=== PATIENT | female | born 1980 | race Hispanic/Latino ===

== ENCOUNTER 2016-08-11 11:42 | Emergency (ER) | payer BC ==
[2016-08-11] MEDS ORDERED: Sodium Chloride 0.9% 1,000 ML IV ONE (12:05)
[2016-08-11] MEDS ORDERED: DiphenhydrAMINE 50 mg/ml Inj IVP ONE (12:05)
[2016-08-12 10:29] LABS: URINE APPEARANCE CLEAR (CLEAR); URINE BILIRUBIN NEGATIVE (NEGATIVE); URINE BLOOD NEGATIVE (NEGATIVE); URINE COLOR YELLOW (YELLOW); URINE GLUCOSE (UA) NEGATIVE (NEGATIVE); URINE KETONE TRACE mg/dL (NEGATIVE)
[2016-08-12 10:30] LABS: URINE AMORPHOUS SEDIMENT MODERATE; URINE BACTERIA MOD (NEG); URINE LEUKOCYTE ESTERASE NEGATIVE Leu/uL (NEGATIVE); URINE PROTEIN 30 mg/dL (<30 mg/dL); URINE RBC NEGATIVE /hpf (0-2); URINE UROBILINOGEN 0.2 E.U./dL (<1 E.U./dL)
[2016-08-23 07:36] VITALS: BMI 28.5
== END 2016-08-12 08:32 | disposition home or self-care (01) ==
LOC: ED 11:42
DX: R51 Headache (principal)

== ENCOUNTER 2016-08-15 17:03 | Emergency (ER) | payer BC ==
[2016-08-15 17:13] VITALS: BMI 27.4
[2016-08-15 17:18] VITALS: TEMP 98.7
[2016-08-15] MEDS ORDERED: DiphenhydrAMINE 50 mg/ml Inj IVP STA (17:53)
--- NOTE | 2016-08-15 17:57 | ED PDOC ---
Arrival/HPI - General Chief Complaint: GI Problem Time Seen by Provider: 08/15/16 17:23 Historian: Patient - History of Present Illness Narrative History of Present Illness (Text): 08/15/16 17:50 A 36 year old female presents to the emergency department complaining of a worsening headache for the past 4 days. Patient notes associated dizziness and sensitivity to light and sound. She states her symptoms are exacerbated with movement. Patient reports she was seen in the emergency room for the same complaints and prescribed Fioricet and Zofran. Patient states she has been complaint with the medication, with no complete relief. Patient notes nausea, non-bilious non-bloody vomiting and mild abdominal discomfort but denies any fever, diarrhea, chest pain, shortness of breath or any other complaints. The epigastric abdominal discomfort started after her vomiting. Patient has had headaches like this before. This is not the worst headache of her life. PMD: None Time/Duration: Other (4 days) Symptom Course: Unchanged Quality: Other Context: Home Past Medical History - Provider Review Nursing Documentation Reviewed: Yes - Past History Past History: No Previous - Infectious Disease Hx of Infectious Diseases: None - Hematological/Oncological Hx Blood Disorders: Yes Hx Anemia: Yes - Psychiatric Hx Depression: No Hx Emotional Abuse: No Hx Physical Abuse: No Hx Substance Use: No - Past Surgical History Past Surgical History: No Previous - Anesthesia Hx Anesthesia: No - Suicidal Assessment Feels Threatened In Home Enviroment: No Family/Social History - Physician Review Nursing Documentation Reviewed: Yes Family/Social History: No Known Family HX Smoking Status: Never Smoked Hx Alcohol Use: No Hx Substance Use: No Hx Substance Use Treatment: No Allergies/Home Meds Allergies/Adverse Reactions: Allergies narcotic Allergy (Uncoded 08/15/16 17:13) VOMITING Home Medications: Home Meds Medication Instructions Recorded Confirmed Acetaminophen/Butalbital/Caf 1 tab PO PRN PRN 08/15/16 08/15/16 [Fioricet] Cephalexin [cephalexin] 500 mg PO BID 08/15/16 08/15/16 Ondansetron [Zofran] 4 mg PO PRN PRN 08/15/16 08/15/16 Review of Systems - Physician Review All systems were reviewed & negative as marked: Yes - Review of Systems Constitutional: absent: Fevers, Night Sweats Eyes: Photophobia. absent: Vision Changes, Eye Pain ENT: Other (hyperacusis). absent: Tinnitus Respiratory: absent: SOB Cardiovascular: absent: Chest Pain Gastrointestinal: Abdominal Pain, Nausea, Vomiting. absent: Diarrhea Musculoskeletal: absent: Back Pain, Neck Pain Neurological: Headache, Dizziness Physical Exam Vital Signs Reviewed: Yes Vital Signs Temp Pulse Resp BP Pulse Ox 08/15/16 20:02 67 18 105/69 100 08/15/16 18:55 69 18 101/71 100 08/15/16 17:17 98.7 F 75 16 99/70 L 100 Temperature: Afebrile Blood Pressure: Hypotensive Pulse: Regular Respiratory Rate: Normal Appearance: Positive for: Well-Appearing, Non-Toxic, Uncomfortable Pain Distress: None Mental Status: Positive for: Alert and Oriented X 3 - Systems Exam Head: Present: Atraumatic, Tenderness (to bilateral temporal and occipital lobes ), Other (Photophobia) Pupils: Present: PERRL Extroacular Muscles: Present: EOMI Conjunctiva: Present: Normal Ears: Present: Normal, NORMAL TM, Normal Canal. No: Erythema Mouth: Present: Moist Mucous Membranes Pharnyx: Present: Normal. No: ERYTHEMA, EXUDATE Nose (External): Present: Atraumatic Nose (Internal): Present: Normal Inspection Neck: Present: Normal Range of Motion Respiratory/Chest: Present: Clear to Auscultation, Good Air Exchange. No: Respiratory Distress, Accessory Muscle Use Cardiovascular: Present: Regular Rate and Rhythm, Normal S1, S2. No: Murmurs Abdomen: Present: Normal Bowel Sounds. No: Tenderness, Distention, Peritoneal Signs Back: Present: Normal Inspection Upper Extremity: Present: Normal Inspection. No: Cyanosis, Edema Lower Extremity: Present: Normal Inspection. No: Edema Neurological: Present: GCS=15, CN II-XII Intact, Speech Normal, Motor Func Grossly Intact, Normal Sensory Function, Normal Cerebellar Funct, Norm Deep Tendon Reflexes, Gait Normal, Normal 2Pt Descrimination Skin: Present: Warm, Dry, Normal Color. No: Rashes Psychiatric: Present: Alert, Oriented x 3, Normal Insight, Normal Concentration Medical Decision Making ED Course and Treatment: 08/15/16 17:50 Impression: A 36 year old female with a headache, dizziness and light/sound sensitivity. Patient notes nausea, vomiting and abdominal discomfort. Differential Diagnosis included but are not limited to: Migraine vs. Tension headache vs. less likely Subarachnoid hemorrhage Plan: -- Head CT -- Labs -- Tylenol, Benadryl, Reglan and IV fluids -- Reassess and disposition Prior Visits: Notes and results from previous visits were reviewed. Patient seen for previously for headaches with similar presentation as today. Progress Notes: 08/15/16 19:17 Patient refused PO medication. Toradol IV ordered. Report Date: 08/15/16 19:20 EXAM: CT Head Without Intravenous Contrast Dictated and Authenticated by: Abdullahi Sales MD Impression: No evidence of acute intracranial pathology. 08/15/16 22:15 Patient's headache resolved after medications. She just feels tired from the benadryl. She is able to walk without ataxia. Neuro exam; normal. No NFD, CN2- 12 intact, 5/5 MS, Sensation intact. Sister came to pick patient up. She's wondering if the headache are due to psych issues. Patient denies SI or HI. No delusions or hallucinations. I explained to patient and sister that most importantly she needs to f/u with her pmd and also a neurology. She can see Dr. Cole and I have given her a referral. - Lab Interpretations Lab Results: 08/15/16 18:40 08/15/16 18:40 Lab Results 08/15/16 18:40: Sodium 138, Potassium 3.8, Chloride 103, Carbon Dioxide 26, Anion Gap 13, BUN 18, Creatinine 0.7, Est GFR ( Amer) > 60, Est GFR (Non- Af Amer) > 60, Random Glucose 97, Calcium 9.3, Magnesium 2.0, Total Bilirubin 0.5, AST 27, ALT 46, Alkaline Phosphatase 65, Total Protein 7.6, Albumin 4.3, Globulin 3.3, Albumin/Globulin Ratio 1.3, Lipase 36 08/15/16 18:40: PT 11.6, INR 1.07, APTT 27.9 08/15/16 18:40: WBC 5.6, RBC 4.59, Hgb 13.6, Hct 38.5, MCV 83.9, MCH 29.6, MCHC 35.3, RDW 12.2, Plt Count 227, MPV 9.9, Gran % 46.0 L, Lymph % (Auto) 48.1 H, [place] % (Auto) 4.8, Eos % (Auto) 0.9 L, Baso % (Auto) 0.2, Gran # 2.56, Lymph # 2.7, [place] # 0.3, Eos # 0.1, Baso # 0.01, ESR 12 - RAD Interpretation Radiology Orders: 08/15/16 17:51 HEAD W/O CONTRAST [CT] Stat - Medication Orders Current Medication Orders: Sodium Chloride (Sodium Chloride 0.9%) 1,000 mls @ 100 mls/hr IV .Q10H DUYEN Last Admin: 08/15/16 18:44 Dose: 100 mls/hr Discontinued Medications Acetaminophen (Tylenol 325mg Tab) 975 mg PO STAT STA Stop: 08/15/16 17:52 Last Admin: 08/15/16 18:49 Dose: Not Given Non-Admin Reason: Patient Refused Diphenhydramine HCl (Benadryl) 50 mg IVP STAT STA Stop: 08/15/16 17:54 Last Admin: 08/15/16 18:44 Dose: 50 mg Metoclopramide HCl 10 mg/ (Sodium Chloride) 52 mls @ 200 mls/hr IV STAT STA Stop: 08/15/16 18:06 Last Admin: 08/15/16 18:44 Dose: 200 mls/hr Ketorolac Tromethamine (Toradol) 30 mg IVP STAT STA Stop: 08/15/16 19:55 Last Admin: 08/15/16 20:16 Dose: 30 mg Re-Assess: MARY Pain Assessment Document 08/15/16 21:16 HI (Rec: 08/15/16 21:39 PR [id number]) Pain Reassessment Is this a pain reassessment? Yes Sleep Is patient sleeping during reassessment? Yes Metoclopramide HCl (Reglan) Confirm Administered Dose 10 mg .ROUTE .STK-MED ONE Stop: 08/15/16 18:08 Last Admin: 08/15/16 18:45 Dose: - Scribe Statement The provider has reviewed the documentation as recorded by the Elveribfilipe Baker Provider Scribe Attestation: All medical record entries made by the Scribe were at my direction and personally dictated by me. I have reviewed the chart and agree that the record accurately reflects my personal performance of the history, physical exam, medical decision making, and the department course for this patient. I have also personally directed, reviewed, and agree with the discharge instructions and disposition. Disposition/Present on Arrival - Present on Arrival Any Indicators Present on Arrival: No History of DVT/PE: No History of Uncontrolled Diabetes: No Urinary Catheter: No History of Decub. Ulcer: No History Surgical Site Infection Following: None - Disposition Have Diagnosis and Disposition been Completed?: Yes Diagnosis: Headache Disposition: HOME/ ROUTINE Disposition Time: 22:17 Patient Plan: Discharge Patient Problems: Current Active Problems Problem Status Onset Headache Acute Condition: IMPROVED Discharge Instructions (ExitCare): Migraine Headache (ED), Tension Headache (ED ) Additional Instructions: Mr Sneed, thank you for letting us take care of you today. Your provider was Dr. Patel. You were treated for Headache. The emergency medical care you received today was directed at your acute symptoms. If you were prescribed any medication, please fill it and take as directed. It may take several days for your symptoms to resolve. Return to the Emergency Department if your symptoms worsen, do not improve, or if you have any other problems. Please contact your doctor or call one of the physicians/clinics you have been referred to that are listed on the Patient Visit Information form that is included in your discharge packet. Bring any paperwork you were given at discharge with you along with any medications you are taking to your follow up visit. Our treatment cannot replace ongoing medical care by a primary care provider (PCP) outside of the emergency department. Thank you for allowing the [facility] team to be part of your care today. If you had an X-Ray or CT scan: A Radiologist will review the ED reading if any change in treatment is needed we will contact you. If you had a blood, urine, or wound culture: It will take several days for the results, if any change in treatment is needed we will contact you. If you had an STI test: It will take 48 hours for the results. Please call after 1 week if you have not heard back. Referrals: Giovani Cole MD [Staff Provider] - Follow up with primary [employer] [facility], [Non-Staff] - Follow up with primary Forms: [employer] ([employer]), WORK NOTE
[2016-08-15] MEDS ORDERED: Sodium Chloride 0.9% 1,000 ML IV SCH (18:00)
[2016-08-15 18:54] LABS: ADD MANUAL DIFF? NO
[2016-08-15 19:09] LABS: ALB/GLOB RATIO 1.3 (1.1-1.8); ALKALINE PHOSPHATASE 65 U/L (38-133); ALT/SGPT 46 U/L (7-56); AST/SGOT 27 U/L (15-39); BILIRUBIN,TOTAL 0.5 mg/dL (0.2-1.3); BLOOD UREA NITROGEN 18 mg/dL (7-21); CALCIUM 9.3 mg/dL (8.4-10.5); CARBON DIOXIDE 26 mmol/L (21-33); CHLORIDE 103 mmol/L (98-107); GFR AFRICAN-AMERICAN > 60; GLUCOSE,RANDOM 97 mg/dL (70-110); LIPASE 36 U/L (23-300); POTASSIUM 3.8 mmol/L (3.6-5.0); SODIUM 138 mmol/L (132-148); TOTAL PROTEIN 7.6 g/dL (5.8-8.3)
[2016-08-15 19:16] LABS: INR 1.07 (0.93-1.08); PARTIAL THROMBOPLASTIN TIME 27.9 Seconds (23.7-30.8)
[2016-08-15 19:44] LABS: BASO # 0.01 K/mm3 (0.0-2.0); BASO % 0.2 % (0.0-3.0); EOS # 0.1 (0.0-0.7); EOS % 0.9 % (1.5-5.0); GRAN # 2.56 (1.4-6.5); HEMATOCRIT 38.5 % (36.0-48.0); LYMPH # 2.7 (1.2-3.4); LYMPH % 48.1 % (22.0-35.0); MEAN CELL VOLUME 83.9 fL (80.0-105.0); MEAN CORPUSCULAR HEMOGLOBIN 29.6 pg (25.0-35.0); MEAN CORPUSCULAR HGB CONC 35.3 g/dl (31.0-37.0); MEAN PLATELET VOLUME 9.9 fl (7.0-11.0); MONO # 0.3 (0.1-0.6); MONO % 4.8 % (1.0-6.0); PLATELET COUNT 227 10^3/uL (120.0-450.0); RED CELL DISTRIBUTION WIDTH 12.2 % (11.5-14.5); WHITE BLOOD COUNT 5.6 10^3/ul (4.5-11.0)
[2016-08-15 21:04] LABS: ERYTHROCYTE SEDIMENTATION RATE 12 mm/hr (0.0-20.0)
[2016-08-15 22:47] VITALS: BP 104/60; PULSE 58; RESP 16; O2SAT 98
--- NOTE | 2016-08-16 07:22 | CT ---
PROCEDURE: CT HEAD WITHOUT CONTRAST. HISTORY: headache COMPARISON: None available. TECHNIQUE: Axial computed tomography images were obtained through the head/brain without intravenous contrast. Radiation dose: Total exam DLP = 725.84 mGy-cm. This CT exam was performed using one or more of the following dose reduction techniques: Automated exposure control, adjustment of the mA and/or kV according to patient size, and/or use of iterative reconstruction technique. FINDINGS: HEMORRHAGE: No intracranial hemorrhage. BRAIN: No mass effect or edema. No atrophy or chronic microvascular ischemic changes. VENTRICLES: Unremarkable. No hydrocephalus. CALVARIUM: Unremarkable. PARANASAL SINUSES: Unremarkable as visualized. No significant inflammatory changes. MASTOID AIR CELLS: Unremarkable as visualized. No inflammatory changes. OTHER FINDINGS: None. IMPRESSION: No intracranial mass, hemorrhage or evidence of acute infarct. Unremarkable examination. Preliminary interpretation of this examination was reported by [facility] at 7:20 p.m. on 08/15/2016. There is concurrence of this report with the preliminary interpretation.
== END 2016-08-15 22:15 | disposition home or self-care (01) ==
LOC: ED 17:03
DX: R51 Headache (principal)
CPT/HCPCS: 70450; 80053; 83690; 83735; 85025; 85610; 85651; 85730; 96374; 96375; 99285; J1200; J1885; J2765; J7040

== ENCOUNTER 2017-02-20 12:05 | Emergency (ER) | payer BC ==
[2017-02-20 12:06] VITALS: BMI 27.4
[2017-02-20 12:19] VITALS: TEMP 98.1; O2SAT 99
--- NOTE | 2017-02-20 13:59 | RAD ---
PROCEDURE: Radiographs of the Lumbar Spine. HISTORY: back pain COMPARISON: No prior. FINDINGS: BONES: Normal alignment. No listhesis. No fracture. DISC SPACES: Unremarkable. OTHER FINDINGS: None. IMPRESSION: Unremarkable radiographs of the lumbar spine.
--- NOTE | 2017-02-20 14:00 | RAD ---
PROCEDURE: Left Hip X-ray Radiographs. HISTORY: hip pain COMPARISON: None. FINDINGS: BONES: There is normal bone mineralization. The pelvic ring is intact. There is no acute fracture or bone destruction. JOINTS: Normal. SOFT TISSUES: There is a benign soft tissue calcification lateral to the right iliac vein. OTHER FINDINGS: None. IMPRESSION: No acute fracture, bone destruction or degenerative osteoarthrosis.
[2017-02-20 14:26] LABS: BASO # 0.02 K/mm3 (0.0-2.0); BASO % 0.4 % (0.0-3.0); EOS % 0.4 % (1.5-5.0); GRAN # 2.22 (1.4-6.5); GRAN % 39.5 % (50.0-68.0); HEMATOCRIT 38.9 % (36.0-48.0); LYMPH % 54.2 % (22.0-35.0); MEAN CELL VOLUME 85.9 fl (80.0-105.0); MEAN CORPUSCULAR HEMOGLOBIN 29.6 pg (25.0-35.0); MEAN CORPUSCULAR HGB CONC 34.4 g/dl (31.0-37.0); MEAN PLATELET VOLUME 9.4 fl (7.0-11.0); MONO # 0.3 (0.1-0.6); MONO % 5.5 % (1.0-6.0); RED CELL DISTRIBUTION WIDTH 12.3 % (11.5-14.5); URINE BILIRUBIN NEGATIVE (NEGATIVE); URINE BLOOD NEGATIVE (NEGATIVE); URINE GLUCOSE (UA) NEGATIVE (NEGATIVE); URINE KETONE NEGATIVE (NEGATIVE); URINE LEUKOCYTE ESTERASE NEGATIVE Leu/uL (NEGATIVE); URINE PROTEIN NEGATIVE mg/dL (<30 mg/dL); URINE UROBILINOGEN 0.2 E.U./dL (<1 E.U./dL); WHITE BLOOD COUNT 5.6 10^3/ul (4.5-11.0)
[2017-02-20 14:27] LABS: URINE APPEARANCE CLEAR (CLEAR); URINE COLOR YELLOW (YELLOW)
[2017-02-20 14:30] LABS: ALB/GLOB RATIO 1.3 (1.1-1.8); ALKALINE PHOSPHATASE 75 U/L (38-126); ALT/SGPT 39 U/L (7-56); AST/SGOT 24 U/L (14-36); BILIRUBIN,TOTAL 0.7 mg/dL (0.2-1.3); BLOOD UREA NITROGEN 11 mg/dL (7-21); CALCIUM 9.8 mg/dL (8.4-10.5); CARBON DIOXIDE 26 mmol/L (21-33); CHLORIDE 103 mmol/L (98-107); GFR AFRICAN-AMERICAN > 60; GLUCOSE,RANDOM 94 mg/dL (70-110); SODIUM 138 mmol/L (132-148); TOTAL PROTEIN 7.8 g/dL (5.8-8.3)
--- NOTE | 2017-02-20 14:31 | ED PDOC ---
Arrival/HPI - General Chief Complaint: Lower Extremity Problem/Injury Time Seen by Provider: 02/20/17 12:44 Historian: Patient - History of Present Illness Narrative History of Present Illness (Text): 02/20/17 14:28 36-year-old female presents today with a 10 day history of low back pain and left hip pain radiating into the left leg. Patient with a history of stress fracture in the left hip in 2008. Denies numbness weakness or tingling in the extremity. Patient states she is worried that she may have a kidney stone or have a problem with her ovary. Patient states she has pain along the groin of the left hip. Patient states she has a sharp pain in the low back. Patient states she has pain in the posterior and anterior aspect of the hip worse with movement. She denies any recent trauma or injury. She denies any heavy lifting. She denies chest pain or shortness of breath. She denies nausea vomiting diarrhea or constipation. She denies any urinary symptoms. Time/Duration: Other (10 days) Symptom Onset: Gradual Symptom Course: Worsening Quality: Stabbing Severity Level: 8, 10 Past Medical History - Provider Review Nursing Documentation Reviewed: Yes - Travel History Have you recently traveled outside [place] w/in the past 3 mons?: No - Past History Past History: No Previous - Infectious Disease Hx of Infectious Diseases: None - Cardiac Hx Cardiac Disorders: No - Pulmonary Hx Respiratory Disorders: No - Neurological Hx Migraine: Yes - HEENT Hx HEENT Disorder: No - Renal Hx Renal Disorder: No - Endocrine/Metabolic Hx Endocrine Disorders: No - Hematological/Oncological Hx Blood Disorders: Yes Hx Anemia: Yes - Integumentary Hx Dermatological Disorder: No - Musculoskeletal/Rheumatological Hx Musculoskeletal Disorders: Yes Other/Comment: Left hip Fx 2009 "stress fx" - Gastrointestinal Hx Gastrointestinal Disorders: No - Genitourinary/Gynecological Hx Genitourinary Disorders: No - Psychiatric Hx Psychophysiologic Disorder: No Hx Substance Use: No - Past Surgical History Past Surgical History: No Previous - Surgical History Other/Comment: Breast reduction 2010 - Anesthesia Hx Anesthesia: No - Suicidal Assessment Feels Threatened In Home Enviroment: No Family/Social History - Physician Review Nursing Documentation Reviewed: Yes Family/Social History: Unknown Family HX Smoking Status: Never Smoked Hx Alcohol Use: No Hx Substance Use: No Hx Substance Use Treatment: No Allergies/Home Meds Allergies/Adverse Reactions: Allergies narcotic Allergy (Uncoded 08/15/16 17:13) VOMITING Home Medications: Home Meds Medication Instructions Recorded Confirmed Acetaminophen/Butalbital/Caf 1 tab PO PRN PRN 08/15/16 02/20/17 [Fioricet] Ondansetron [Zofran] 4 mg PO PRN PRN 08/15/16 02/20/17 Review of Systems - Review of Systems Constitutional: absent: Fatigue, Fevers Respiratory: absent: SOB, Cough Cardiovascular: absent: Chest Pain, Palpitations Gastrointestinal: absent: Abdominal Pain, Nausea, Vomiting Genitourinary Female: absent: Dysuria, Frequency, Hematuria, Vaginal Bleeding, Vaginal Discharge Musculoskeletal: Arthralgias, Back Pain. absent: Neck Pain Skin: absent: Rash, Pruritis Neurological: absent: Headache, Dizziness Psychiatric: absent: Anxiety, Depression Physical Exam Vital Signs Reviewed: Yes Vital Signs Temp Pulse Resp BP Pulse Ox 02/20/17 15:15 88 18 100/60 99 02/20/17 12:10 98.1 F 72 17 105/69 99 Temperature: Afebrile Blood Pressure: Normal Pulse: Regular Respiratory Rate: Normal Appearance: Positive for: Well-Appearing, Non-Toxic, Comfortable Pain Distress: None Mental Status: Positive for: Alert and Oriented X 3 - Systems Exam Head: Present: Atraumatic Mouth: Present: Moist Mucous Membranes Neck: Present: Normal Range of Motion Respiratory/Chest: Present: Clear to Auscultation, Good Air Exchange. No: Respiratory Distress, Accessory Muscle Use Cardiovascular: Present: Regular Rate and Rhythm, Normal S1, S2. No: Murmurs Abdomen: Present: Tenderness (+ minimal tenderness left anterior hip/pelvis), Normal Bowel Sounds. No: Distention, Peritoneal Signs, Rebound, Guarding Back: Present: Normal Inspection, Paraspinal Tenderness (+ left sided paraspinal tenderness). No: CVA Tenderness, Midline Tenderness Upper Extremity: Present: Normal Inspection Lower Extremity: Present: Normal Inspection, Normal ROM, Tenderness (left hip; + ttp over anterior aspect of hip; no edema, no erythema; no ecchymosis; full rom of hip. ), Neurovascularly Intact, Capillary Refill < 2 s. No: CALF TENDERNESS, Swelling, Erythema, Deformity Neurological: Present: GCS=15, Speech Normal Skin: Present: Warm, Dry, Normal Color. No: Rashes Psychiatric: Present: Alert, Oriented x 3 Medical Decision Making ED Course and Treatment: 02/20/17 14:32 36-year-old female presents today with left hip pain and back pain 10 days xray left hip; no fracture xray ls spine; no fx toradol given for pain cbc wnl cmp wnl ua; wnl no blood transvaginal US: FINDINGS: UTERUS: Measures 7.0 x 3.8 x 5.4 cm. Anteverted, normal in size and appearance. No fibroid or other mass lesion seen. ENDOMETRIUM: Measures 10 mm in diameter. The central endometrial echo complex is normal in appearance. CERVIX: There is small amount of fluid in the endocervical canal. RIGHT OVARY: Measures 3.0 x 4.2 x 1.7 cm. No solid mass. Normal flow. There is a 1.7 x 1.7 x 1.1 cm presumable corpus luteum or complicated cyst. LEFT OVARY: Measures 3.3 x 1.3 x 3.3 cm. No solid mass. Normal flow. FREE FLUID: No significant free fluid noted. OTHER FINDINGS: None. IMPRESSION: No evidence of fibroid uterus, ovarian cyst or mass. Patient re-assessment: Patient nontoxic well-appearing no distress. stable Vital signs. feeling better; I discussed all results in depth with the patient advised follow-up with the orthopedist and back specialist within the next 2 days. I advised patient to use crutches for ambulation at home. I advised patient she will need follow-up regarding her continued left hip pain. Patient is refusing crutches states she will not use them. Patient verbalizes understanding of discharge instructions and need for immediate followup. all aspects of this case were discussed the attending of record. impression; back pain, hip pain Motrin every 6 hours as needed for pain Flexeril one tablet every 8 hours as needed for muscle spasms: May cause drowsiness Followup with the orthopedist and back specialist within the next 2 days Followup with primary care physician within the next 2 days Return if symptoms worsen persist or if new symptoms develop - Lab Interpretations Lab Results: 02/20/17 14:07 02/20/17 14:07 Lab Results 02/20/17 14:07: WBC 5.6, RBC 4.53, Hgb 13.4, Hct 38.9, MCV 85.9, MCH 29.6, MCHC 34.4, RDW 12.3, Plt Count 235, MPV 9.4, Gran % 39.5 L, Lymph % (Auto) 54.2 H, [place] % (Auto) 5.5, Eos % (Auto) 0.4 L, Baso % (Auto) 0.4, Gran # 2.22, Lymph # 3.0, [place] # 0.3, Eos # 0.0, Baso # 0.02 02/20/17 14:07: Sodium 138, Potassium 4.0, Chloride 103, Carbon Dioxide 26, Anion Gap 13, BUN 11, Creatinine 0.6 L, Est GFR ( Amer) > 60, Est GFR ( Non-Af Amer) > 60, Random Glucose 94, Calcium 9.8, Total Bilirubin 0.7, AST 24, ALT 39, Alkaline Phosphatase 75, Total Protein 7.8, Albumin 4.5, Globulin 3.4, Albumin/Globulin Ratio 1.3 02/20/17 14:07: Urine Color Yellow, Urine Appearance Clear, Urine pH 7.0, Ur Specific [place] 1.015, Urine Protein Negative, Urine Glucose (UA) Negative, Urine Ketones Negative, Urine Blood Negative, Urine Nitrate Negative, Urine Bilirubin Negative, Urine Urobilinogen 0.2, Ur Leukocyte Esterase Negative - RAD Interpretation Radiology Orders: 02/20/17 12:45 Hip Left [HIP MIN 2V W/ PELVIS LT] [RAD] Stat LS SPINE WITH OBL > 18 YRS OLD [RAD] Stat 02/20/17 13:41 TRANSVAGINAL [US] Stat - Medication Orders Current Medication Orders: Discontinued Medications Ketorolac Tromethamine (Toradol) 60 mg IM STAT STA Stop: 02/20/17 13:37 Last Admin: 02/20/17 14:11 Dose: 60 mg MAR Pain Assessment Document 02/20/17 14:11 SE (Rec: 02/20/17 14:11 [id number]) Pain Reassessment Is this a pain reassessment? No Sleep Is patient sleeping during reassessment? No Presence of Pain Presence of Pain Yes Pain Scale Used Pain Scale Used Numeric IM Administration Charges Document 02/20/17 14:11 SE (Rec: 02/20/17 14:11 SE [id number]) Injection Site MAR Injection Site Right Gluteus Jhoan Charges for Administration # of IM Administrations 1 Disposition/Present on Arrival - Present on Arrival Any Indicators Present on Arrival: No History of DVT/PE: No History of Uncontrolled Diabetes: No Urinary Catheter: No History of Decub. Ulcer: No History Surgical Site Infection Following: None - Disposition Have Diagnosis and Disposition been Completed?: Yes Diagnosis: Back pain, Hip pain Disposition: HOME/ ROUTINE Disposition Time: 16:32 Patient Plan: Discharge Condition: GOOD Discharge Instructions (ExitCare): Hip Pain (ED), Acute Low Back Pain (ED) Additional Instructions: Motrin every 6 hours as needed for pain Flexeril one tablet every 8 hours as needed for muscle spasms: May cause drowsiness Followup with the orthopedist and back specialist within the next 2 days Followup with primary care physician within the next 2 days Return if symptoms worsen persist or if new symptoms develop Prescriptions: Cyclobenzaprine [Cyclobenzaprine HCl] 10 mg PO Q8 #10 tab Ibuprofen [Motrin] 600 mg PO Q6H PRN #20 tab PRN Reason: pain/fever reduction Referrals: [facility] [place] [Outside] - Follow up with primary Oscar Cedeño MD [Staff Provider] - Follow up with primary Nicolas Boyer III, MD [Medical Doctor] - Follow up with primary Nkechi Horne MD [Staff Provider] - Follow up with primary Forms: [employer] (Vietnamese), WORK NOTE
[2017-02-20 15:16] VITALS: RESP 18
--- NOTE | 2017-02-20 15:48 | US ---
HISTORY: Pelvic pain COMPARISON: None available. TECHNIQUE: Transvaginal pelvic ultrasound was performed. FINDINGS: UTERUS: Measures 7.0 x 3.8 x 5.4 cm. Anteverted, normal in size and appearance. No fibroid or other mass lesion seen. ENDOMETRIUM: Measures 10 mm in diameter. The central endometrial echo complex is normal in appearance. CERVIX: There is small amount of fluid in the endocervical canal. RIGHT OVARY: Measures 3.0 x 4.2 x 1.7 cm. No solid mass. Normal flow. There is a 1.7 x 1.7 x 1.1 cm presumable corpus luteum or complicated cyst. LEFT OVARY: Measures 3.3 x 1.3 x 3.3 cm. No solid mass. Normal flow. FREE FLUID: No significant free fluid noted. OTHER FINDINGS: None. IMPRESSION: No evidence of fibroid uterus, ovarian cyst or mass.
[2017-02-20 16:47] VITALS: BP 103/59; PULSE 64
== END 2017-02-20 16:40 | disposition home or self-care (01) ==
LOC: ED 12:05
DX: M54.5 Low back pain (principal); M25.552 Pain in left hip
CPT/HCPCS: 72110; 73502; 76830; 80053; 81003; 85025; 96372; 99285; J1885

== ENCOUNTER 2018-06-26 14:49 | Emergency (ER) | payer BC ==
[2018-06-26 15:22] LABS: URINE BILIRUBIN NEGATIVE (NEGATIVE); URINE BLOOD NEGATIVE (NEGATIVE); URINE GLUCOSE (UA) NEGATIVE (NEGATIVE); URINE LEUKOCYTE ESTERASE NEGATIVE Leu/uL (NEGATIVE); URINE PROTEIN NEGATIVE mg/dL (<30 mg/dL); URINE UROBILINOGEN 0.2 E.U./dL (<1 E.U./dL)
[2018-06-26 15:23] LABS: HCG,QUALITATIVE URINE NEGATIVE (NEGATIVE)
[2018-06-26 15:24] LABS: URINE APPEARANCE CLEAR (CLEAR); URINE COLOR YELLOW (YELLOW)
[2018-06-26 15:34] VITALS: RESP 18; BMI 28.1
[2018-06-26] MEDS ORDERED: Sodium Chloride 0.9% 1,000 ML IV STA (15:48)
[2018-06-26 17:00] LABS: BASO # 0.02 K/mm3 (0.0-2.0); BASO % 0.3 % (0.0-3.0); EOS # 0.1 (0.0-0.7); HEMOGLOBIN 12.1 g/dL (12.0-16.0); LYMPH # 3.1 (1.2-3.4); LYMPH % 50.7 % (22.0-35.0); MEAN PLATELET VOLUME 9.6 fl (7.0-11.0); MONO # 0.3 (0.1-0.6); MONO % 5.6 % (1.0-6.0); RBC 4.17 10^6/uL (3.5-6.1); RED CELL DISTRIBUTION WIDTH 12.1 % (11.5-14.5)
[2018-06-26 17:05] LABS: ALB/GLOB RATIO 1.1 (1.1-1.8); ALBUMIN 3.9 g/dL (3.0-4.8); ALT/SGPT 33 U/L (7-56); AST/SGOT 29 U/L (14-36); BLOOD UREA NITROGEN 19 mg/dL (7-21); CALCIUM 9.4 mg/dL (8.4-10.5); GFR NON-AFRICAN AMERICAN > 60; LIPASE 51 U/L (23-300)
[2018-06-26] MEDS ORDERED: Iohexol 350 MG/100 ML VIAL ONE (17:35)
--- NOTE | 2018-06-26 17:48 | ED PDOC ---
Arrival/HPI - General Chief Complaint: Abdominal Pain Time Seen by Provider: 06/26/18 15:02 Historian: Patient - History of Present Illness Narrative History of Present Illness (Text): 06/26/18 17:43 38-year-old female presents today with a 2 week history of worsening left sided abdominal pain. pt states the pain is sharp, and is located along the entire left side of the abdomen and goes into the hip. pt states she also is having back pain. denies urinary symptoms. no fever/chills. no n/v/d. pt states she has chronic constipation. pt states she tried mobic at home without improvement. pt denies any trauma or injury. no other complaints. Past Medical History - Provider Review Nursing Documentation Reviewed: Yes - Travel History Have you recently traveled outside [place] w/in the past 3 mons?: No - Past History Past History: No Previous - Infectious Disease Hx of Infectious Diseases: None - Cardiac Hx Cardiac Disorders: No - Pulmonary Hx Respiratory Disorders: No - Neurological Hx Migraine: Yes - HEENT Hx HEENT Disorder: No - Renal Hx Renal Disorder: No - Endocrine/Metabolic Hx Endocrine Disorders: No - Hematological/Oncological Hx Blood Disorders: Yes Hx Anemia: Yes - Integumentary Hx Dermatological Disorder: No - Musculoskeletal/Rheumatological Hx Musculoskeletal Disorders: Yes Other/Comment: Left hip Fx 2008 "stress fx" - Gastrointestinal Hx Gastrointestinal Disorders: No - Genitourinary/Gynecological Hx Genitourinary Disorders: No - Psychiatric Hx Psychophysiologic Disorder: No Hx Substance Use: No - Past Surgical History Past Surgical History: No Previous - Surgical History Hx Cholecystectomy: Yes () Other/Comment: Breast reduction 2009 - Anesthesia Hx Anesthesia: No Hx Anesthesia Reactions: No Hx Malignant Hyperthermia: No - Suicidal Assessment Feels Threatened In Home Enviroment: No Family/Social History - Physician Review Nursing Documentation Reviewed: Yes Family/Social History: Unknown Family HX Smoking Status: Never Smoked Hx Alcohol Use: No Hx Substance Use: No Hx Substance Use Treatment: No Allergies/Home Meds Allergies/Adverse Reactions: Allergies narcotic Allergy (Uncoded 08/15/16 17:13) VOMITING Home Medications: Home Meds Medication Instructions Recorded Confirmed Acetaminophen/Butalbital/Caf 1 tab PO PRN PRN 08/15/16 02/20/17 [Fioricet] Ondansetron [Zofran] 4 mg PO PRN PRN 08/15/16 02/20/17 Review of Systems - Review of Systems Constitutional: absent: Fatigue, Fevers Respiratory: absent: SOB, Cough Cardiovascular: absent: Chest Pain, Palpitations Gastrointestinal: Abdominal Pain, Constipation. absent: Diarrhea, Nausea, Vomiting Genitourinary Female: absent: Dysuria, Frequency, Hematuria Musculoskeletal: Back Pain. absent: Neck Pain Skin: absent: Rash, Pruritis Neurological: absent: Headache, Dizziness Psychiatric: absent: Anxiety, Depression, Suicidal Ideation Physical Exam Vital Signs Reviewed: Yes Vital Signs Temp Pulse Resp BP Pulse Ox 06/26/18 14:56 98.2 F 91 H 18 118/80 100 Temperature: Afebrile Blood Pressure: Normal Pulse: Regular Respiratory Rate: Normal Appearance: Positive for: Well-Appearing, Non-Toxic, Comfortable Pain Distress: None Mental Status: Positive for: Alert and Oriented X 3 - Systems Exam Head: Present: Atraumatic Mouth: Present: Moist Mucous Membranes Neck: Present: Normal Range of Motion Respiratory/Chest: Present: Clear to Auscultation, Good Air Exchange. No: Respiratory Distress, Accessory Muscle Use Cardiovascular: Present: Regular Rate and Rhythm, Normal S1, S2. No: Murmurs Abdomen: Present: Tenderness (+ left sided upper and lower abdominal tenderness.). No: Distention, Peritoneal Signs, Rebound, Guarding Back: Present: Normal Inspection, Paraspinal Tenderness (+ minimal left sided abd tenderness.). No: CVA Tenderness, Midline Tenderness Upper Extremity: Present: Normal ROM Lower Extremity: Present: Normal ROM, Neurovascularly Intact. No: Tenderness (left hip; no tenderness; no edema, no erythema; no ecchymosis; full rom of hip. ) Neurological: Present: GCS=15, Speech Normal Skin: Present: Warm, Dry, Normal Color. No: Rashes Psychiatric: Present: Alert, Oriented x 3 Medical Decision Making ED Course and Treatment: 06/26/18 17:50 Patient is nontoxic well appearing with stable vital signs presenting with left sided abdominal pain CBC wnl CMP wnl Lipase wnl Urinalysis wnl CAT scan: FINDINGS: LOWER THORAX: The visualized lungs are clear. There is dependent atelectasis in the lung bases. LIVER: Normal in size with homogeneous enhancement. No gross lesion or ductal dila tation. GALLBLADDER AND BILE DUCTS: Surgically absent. PANCREAS: Normal in size with homogeneous enhancement. No gross lesion or ductal dilatation. SPLEEN: Normal in size and appearance. ADRENALS: No discrete nodule. KIDNEYS AND URETERS: Normal in size with homogeneous enhancement. There is a 3 mm nonobstructing stone in the left upper pole. There is cortical scarring in the left upper pole . No hydronephrosis. No solid mass. VASCULATURE: No aortic aneurysm. There are no aortic atherosclerotic calcifications or mural plaque present. BOWEL: Evaluation of the bowel is limited in the absence of oral contrast. The proximal small bowel loops are normal in caliber. There is fluid and fecalization of small bowel contents in the mid and distal small bowel loops. There is moderate amount of stool in the ascending colon and hepatic flexure. The left hemicolon is decompressed. The colon is grossly normal in appearance. No bowel wall thickening or obstruction. APPENDIX: Normal appendix. PERITONEUM: No free fluid. No free air. LYMPH NODES: No enlarged lymph nodes. BLADDER: Well distended and normal in appearance. REPRODUCTIVE: The uterus is normal in size. BONES: No acute fracture. Within normal limits for the patient's age. Multilevel degenerative disc disease. OTHER FINDINGS: None. IMPRESSION: No acute abdominal or pelvic abnormality. 3 mm nonobstructing stone in the upper pole of the left kidney. Chronic cortical scarring in the left upper pole. Constipation and fecalization of the mid and distal small bowel loops compatible with chronic stasis. No bowel obstruction Patient reassessment: pt is non toxic well appearing; no distress. all results discussed with patient in depth; advised f/u with GI specialist. advised stool softener, increase fluids. advised f/u with pmd and return if symptoms worsen,persist or if new symptoms develop. Patient verbalizes understanding of discharge instructions and need for immediate followup. All aspects of this case were discussed the attending of record. Impression: Abdominal pain, constipation, kidney stone Motrin every 6 hours as needed for pain Increase fluids, increase fiber Follow up with the GI specialist within the next 2 days. Follow up with primary care physician within the next 2 days Return immediately if symptoms worsen persist or if new symptoms develop: High fevers, increasing pain, vomiting, diarrhea or any other concerning symptoms develop Reassessment Condition: Re-examined, Improved - Lab Interpretations Lab Results: Total Bilirubin 0.2 mg/dL (0.2-1.3) 06/26/18 16:16 AST 29 U/L (14-36) 06/26/18 16:16 ALT 33 U/L (7-56) 06/26/18 16:16 Alkaline Phosphatase 87 U/L (38-126) 06/26/18 16:16 Total Protein 7.4 g/dL (5.8-8.3) 06/26/18 16:16 Albumin 3.9 g/dL (3.0-4.8) 06/26/18 16:16 Globulin 3.5 gm/dL 06/26/18 16:16 Albumin/Globulin Ratio 1.1 (1.1-1.8) 06/26/18 16:16 Lipase 51 U/L (23-300) 06/26/18 16:16 Urine Color Yellow (YELLOW) 06/26/18 15:06 Urine Appearance Clear (CLEAR) 06/26/18 15:06 Urine pH 7.0 (4.7-8.0) 06/26/18 15:06 Ur Specific [place] 1.010 (1.005-1.035) 06/26/18 15:06 Urine Protein Negative mg/dL (<30 mg/dL) 06/26/18 15:06 Urine Glucose (UA) Negative mg/dL (NEGATIVE) 06/26/18 15:06 Urine Ketones Negative mg/dL (NEGATIVE) 06/26/18 15:06 Urine Blood Negative (NEGATIVE) 06/26/18 15:06 Urine Nitrate Negative (NEGATIVE) 06/26/18 15:06 Urine Bilirubin Negative (NEGATIVE) 06/26/18 15:06 Urine Urobilinogen 0.2 E.U./dL (<1 E.U./dL) 06/26/18 15:06 Ur Leukocyte Esterase Negative Christal/uL (NEGATIVE) 06/26/18 15:06 Urine HCG, Qual Negative (NEGATIVE) 06/26/18 15:06 Urine HCG, Qual Negative (NEGATIVE) 06/26/18 15:06 - RAD Interpretation Radiology Orders: 06/26/18 15:48 ABD & PELVIS IV CONTRAST ONLY [CT] Stat - Medication Orders Current Medication Orders: Discontinued Medications Sodium Chloride (Sodium Chloride 0.9%) 1,000 mls @ 999 mls/hr IV .Q1H1M STA Stop: 06/26/18 16:48 Last Admin: 06/26/18 16:21 Dose: 999 mls/hr eMAR Start Stop Document 06/26/18 16:21 MA (Rec: 06/26/18 16:24 MA [facility] [id number]) Intravenous Solution Start Date 06/26/18 Start Time 16:24 Ketorolac Tromethamine (Toradol) 30 mg IVP STAT STA Stop: 06/26/18 15:49 Last Admin: 06/26/18 16:20 Dose: 30 mg MAR Pain Assessment Document 06/26/18 16:20 MA (Rec: 06/26/18 16:21 [id number] Pain Reassessment Is this a pain reassessment? Yes Sleep Is patient sleeping during reassessment? No Presence of Pain Presence of Pain Yes Pain Scale Used Protocol: PSCALES Pain Scale Used Numeric Location Pain Location Body Site Abdomen Description Description Constant Intensity of Pain at present 6 IVP Administration Document 06/26/18 16:20 MA (Rec: 06/26/18 16:21 MA [facility] [id number]) Charges for Administration # of IVP Administrations 1 Disposition/Present on Arrival - Present on Arrival Any Indicators Present on Arrival: No History of DVT/PE: No History of Uncontrolled Diabetes: No Urinary Catheter: No History of Decub. Ulcer: No History Surgical Site Infection Following: None - Disposition Have Diagnosis and Disposition been Completed?: Yes Diagnosis: Abdominal pain, Constipation Disposition: HOME/ ROUTINE Disposition Time: 17:51 Patient Plan: Discharge Patient Problems: Current Active Problems Problem Status Onset Abdominal pain Acute Constipation Acute Condition: GOOD Discharge Instructions (ExitCare): Constipation, Adult (DC), Acute Abdomen (Belly Pain), Adult (DC) Additional Instructions: Motrin every 6 hours as needed for pain Increase fluids, increase fiber Colace; 1 tablet twice daily Follow up with the GI specialist within the next 2 days. Follow up with primary care physician within the next 2 days Return immediately if symptoms worsen persist or if new symptoms develop: High fevers, increasing pain, vomiting, diarrhea or any other concerning symptoms develop Prescriptions: Docusate [Colace] 100 mg PO BID #30 cap Ibuprofen [Motrin] 600 mg PO Q6H PRN #20 tab PRN Reason: pain/fever reduction Referrals: Tanya Jeff MD [Staff Provider] - Follow up with primary Leydi Shaver MD [Medical Doctor] - Follow up with primary [facility] [Outside] - Follow up with primary Forms: [facility] (Greek), WORK NOTE
--- NOTE | 2018-06-26 17:57 | CT ---
Date of service: 06/26/2018 PROCEDURE: CT Abdomen and Pelvis with contrast HISTORY: Left-sided abdominal pain COMPARISON: 03/03/2017. TECHNIQUE: CT scan of the abdomen and pelvis was performed after administration of intravenous contrast. Oral contrast was not administered. Coronal and sagittal reformatted images were obtained. Contrast dose: 100 mL Omnipaque 350 Radiation dose: Total exam DLP = 426.07 mGy-cm. This CT exam was performed using one or more of the following dose reduction techniques: Automated exposure control, adjustment of the mA and/or kV according to patient size, and/or use of iterative reconstruction technique. FINDINGS: LOWER THORAX: The visualized lungs are clear. There is dependent atelectasis in the lung bases. LIVER: Normal in size with homogeneous enhancement. No gross lesion or ductal dilatation. GALLBLADDER AND BILE DUCTS: Surgically absent. PANCREAS: Normal in size with homogeneous enhancement. No gross lesion or ductal dilatation. SPLEEN: Normal in size and appearance. ADRENALS: No discrete nodule. KIDNEYS AND URETERS: Normal in size with homogeneous enhancement. There is a 3 mm nonobstructing stone in the left upper pole. There is cortical scarring in the left upper pole. No hydronephrosis. No solid mass. VASCULATURE: No aortic aneurysm. There are no aortic atherosclerotic calcifications or mural plaque present. BOWEL: Evaluation of the bowel is limited in the absence of oral contrast. The proximal small bowel loops are normal in caliber. There is fluid and fecalization of small bowel contents in the mid and distal small bowel loops. There is moderate amount of stool in the ascending colon and hepatic flexure. The left hemicolon is decompressed. The colon is grossly normal in appearance. No bowel wall thickening or obstruction. APPENDIX: Normal appendix. PERITONEUM: No free fluid. No free air. LYMPH NODES: No enlarged lymph nodes. BLADDER: Well distended and normal in appearance. REPRODUCTIVE: The uterus is normal in size. BONES: No acute fracture. Within normal limits for the patient's age. Multilevel degenerative disc disease. OTHER FINDINGS: None. IMPRESSION: No acute abdominal or pelvic abnormality. 3 mm nonobstructing stone in the upper pole of the left kidney. Chronic cortical scarring in the left upper pole. Constipation and fecalization of the mid and distal small bowel loops compatible with chronic stasis. No bowel obstruction
[2018-06-26 18:33] VITALS: BP 116/72; PULSE 88; TEMP 98; O2SAT 98
== END 2018-06-26 18:37 | disposition home or self-care (01) ==
LOC: ED 14:49
DX: R10.9 Unspecified abdominal pain (principal); K59.00 Constipation, unspecified
CPT/HCPCS: 74177; 80053; 81003; 81025; 83690; 84703; 85025; 96374; 99283; J1885; J7030; Q9967